=== PATIENT | female | born 1950 | race Caucasian/White ===

== ENCOUNTER 2024-07-28 09:39 | Emergency (ER) | payer OTHER ==
[2024-07-28 09:46] VITALS: BP 120/75; PULSE 78; RESP 18; TEMP 97.8; BMI 21.6
[2024-07-28] MEDS ORDERED: ACETAMINOPHEN 325 MG TABLET (FP) ONE (10:15)
[2024-07-28] MEDS ORDERED: IBUPROFEN 400 MG TABLET (FP) PO ONE (10:15)
[2024-07-28] MEDS: ACETAMINOPHEN 500 MG TABLET (FP) PO ONE (10:40)
[2024-07-28] MEDS: IBUPROFEN 400 MG TABLET (FP) PO ONE (10:40)
== END 2024-07-28 11:40 | disposition home or self-care (01) ==
LOC: FER 09:39
DX: M71.22 Synovial cyst of popliteal space [Baker], left knee (principal); M25.562 Pain in left knee
CPT/HCPCS: 73564-TC-LT-FY; 93971-TC; 99284-25